=== PATIENT | female | born 1985 | race Hispanic/Latino ===

== ENCOUNTER 2018-09-18 19:40 | Emergency (ER) | payer OTHER ==
[~2018-09-18] VITALS: Ht 162.6 cm; Wt 56.8 kg
[2018-09-18 20:17] LABS: BASO % 0.4 % (0.0-1.0); EOS # 0.1 10^3/uL (0.0-0.50); EOS % 1.1 % (0.0-3.0); HEMATOCRIT 39.5 % (36.0-47.0); HEMOGLOBIN 12.5 g/dl (12.0-15.5); LYMPH # 2.2 10^3/uL (1.5-4.5); LYMPH % 27.6 % (24.0-44.0); MEAN CORPUSCULAR HEMOGLOBIN 26.8 pg (27.0-33.0); MEAN CORPUSCULAR HGB CONC 31.6 g/dl (32.0-36.5); MEAN CORPUSCULAR VOLUME 84.6 fl (80.0-96.0); MONO # 0.7 10^3/uL (0.0-0.8); MONO % 8.8 % (0.0-5.0); NEUTROPHILS % 61.9 % (36.0-66.0); PLATELET COUNT, AUTOMATED 333 10^3/uL (150-450); RED BLOOD COUNT 4.67 10^6/uL (4.00-5.40); WHITE BLOOD COUNT 8.1 10^3/uL (4.0-10.0)
[2018-09-18 20:42] LABS: ALT/SGPT 21 U/L (12-78); BILIRUBIN,DIRECT < 0.1 MG/DL (0.0-0.2); BILIRUBIN,TOTAL 0.4 MG/DL (0.2-1.0); BLOOD UREA NITROGEN 18 MG/DL (7-18); CALCIUM LEVEL 9.4 MG/DL (8.5-10.1); CARBON DIOXIDE LEVEL 31 MEQ/L (21-32); CHLORIDE LEVEL 105 MEQ/L (98-107); CREATININE FOR GFR 0.73 MG/DL (0.55-1.30); GLOMERULAR FILTRATION RATE > 60.0 (>60); GLUCOSE, FASTING 89 MG/DL (70-100); LIPASE 210 U/L (73-393); POTASSIUM SERUM 4.2 MEQ/L (3.5-5.1); SODIUM LEVEL 141 MEQ/L (136-145)
[2018-09-18 21:46] LABS: URINE PREG TEST NEGATIVE (NEGATIVE)
[2018-09-18] MEDS ORDERED: ISOVUE-370 76% 125ML VIAL (Q9967 PER ML) As Ordered ONE (22:57)
[2018-09-18] MEDS ORDERED: FLON1SPR NARES (22:59)
[2018-09-18] MEDS ORDERED: ACETAMINOPHEN 325 MG TAB PO ONE (23:15)
--- NOTE | 2018-09-19 00:25 | REPVR ---
EXAM: CT Abdomen and Pelvis With Contrast EXAM DATE/TIME: 09/18/2018 9:41 PM CLINICAL HISTORY: 33 years old, female; Pain; Abdominal pain; Localized; Right lower quadrant (rlq); Additional info: Rlq pain; R/O appy TECHNIQUE: Imaging protocol: Axial computed tomography images of the abdomen and pelvis with intravenous contrast. Coronal and sagittal reformatted images were created and reviewed. Radiation optimization: All CT scans at this facility use at least one of these dose optimization techniques: automated exposure control; mA and/or kV adjustment per patient size (includes targeted exams where dose is matched to clinical indication); or iterative reconstruction. Contrast material: iso Contrast volume: 100 ml Contrast route: ac COMPARISON: No relevant prior studies available. FINDINGS: Lower thorax: Mild dependent atelectatic change at the lung bases. ABDOMEN: Liver: Subcentimeter low density hepatic lesions, measuring up to 4 mm, too small to characterize. 1.5 x 1.1 cm hypervascular lesion in the right hepatic lobe, likely a flash filling hemangioma. Gallbladder and bile ducts: No radiodense gallstones. No biliary ductal dilatation. Pancreas: Unremarkable. Spleen: Unremarkable. Adrenals: Unremarkable. Kidneys and ureters: No mass. No radiodense calculi. No hydronephrosis. Stomach and bowel: No bowel wall thickening. No obstruction. No pneumatosis. Appendix: Normal. PELVIS: Bladder: Unremarkable. Reproductive: 3.8 x 2.9 cm right adnexal cystic lesion. Fibroid uterus. ABDOMEN and PELVIS: Intraperitoneal space: Trace nonspecific free pelvic fluid, likely physiologic. No organized fluid collection. No free air. Bones/joints: No acute osseous abnormality. Soft tissues: Unremarkable. Vasculature: Unremarkable. No aneurysm. Lymph nodes: No pathologically enlarged lymph nodes. IMPRESSION: 1. No CT evidence of acute appendicitis. 2. 3.8 x 2.9 cm right adnexal cystic lesion and trace nonspecific free pelvic fluid, likely physiologic. If clinically indicated, pelvic ultrasound may be obtained for further evaluation. 3. Additional findings, as above. COMMENT: Consistent with the [employer]'s Incidental Findings Committee Report (J [employer]iol 2010): Unless the patient's specific circumstances suggest otherwise, any liver lesion 0.5 cm or less, any cystic kidney lesion less than 1.0 cm, and/or any adrenal lesion 1.0 cm or less not otherwise characterized in this report as possessing suspicious or indeterminate imaging features is/are highly likely to be benign and do not require follow-up imaging or biopsy. Electronically signed by: Ranjeet Miranda On 09/19/2018 00:24:35 AM
[2018-09-19] MEDS ORDERED: KETO10TAB PO (02:37)
[2018-09-19 03:11] VITALS: BP 115/80
--- NOTE | 2018-09-19 04:17 | REPVR ---
EXAM: US Pelvis Complete, Transabdominal and US Duplex Artery and Vein, Ovaries, Complete EXAM DATE/TIME: 09/19/2018 2:26 AM CLINICAL HISTORY: 33 years old, female; Abnormal findings; Abnormal imaging test; Additional info: Rlq pain/cyst on ct/ R/O torsion TECHNIQUE: Imaging protocol: Real-time transabdominal pelvic ultrasound with image documentation. Real-time duplex ultrasound scan of the arterial and venous flow of the ovaries with B-mode, color Doppler flow and spectral waveform analysis. Complete Pelvis, Complete Duplex. COMPARISON: CT ABD/PEL W/IV CONTRAST ONLY 09/18/2018 10:57 PM FINDINGS: Uterus/cervix: Uterus measures 10.9 x 4.2 x 6.3 cm. There is a mildly heterogeneous, isoechoic mass consistent with a fibroid in the anterior aspect of knee uterine body which measures 3.4 x 3.7 x 4.1 cm. The endometrial stripe measures 1.4 cm in thickness. Right adnexa: The right ovary measures 5.2 x 3.7 x 4.4 cm. There is an anechoic cyst within the right ovary which measures 3.2 x 2.5 x 2.7 cm. Normal arterial and venous blood flow are seen in the right ovary on color and pulsed Doppler. The peak systolic velocity is 17 cm/s. Left adnexa: The left ovary appears unremarkable and measures 3.1 x 3.6 x 2.4 cm.Normal arterial and venous blood flow are seen in the left ovary on color and pulsed Doppler. The peak systolic velocity is 12 cm/s. Free fluid: No significant fluid is seen in the cul-de-sac. Bladder: The bladder appears normal and measures 9.2 x 9.5 x 10.7 cm. IMPRESSION: 1. Simple cyst within the right ovary measuring up to 3.2 cm, corresponding to the findings on CT scan. 2. Normal blood flow within both ovaries. No evidence of ovarian torsion. 3. Anterior uterine body fibroid. Electronically signed by: Araceli Engel On 09/19/2018 04:17:24 AM
== END 2018-09-19 03:11 | disposition home or self-care (01) ==
LOC: M ED 19:40
DX: N83.201 Unspecified ovarian cyst, right side (principal); D25.9 Leiomyoma of uterus, unspecified; N80.9 Endometriosis, unspecified; R11.0 Nausea
CPT/HCPCS: 74177; 76856; 80048; 80076; 81001; 83690; 84703; 85025; 93976; 99284; Q9967

== ENCOUNTER → 2018-09-18 | Outpatient (REF) | payer OTHER ==
[~2018-09-18] MED LIST: FLON1SPR NARES; KETO10TAB PO
[2018-09-19 14:43] LABS: CHLAMYDIA DNA AMPLIFICATION NEGATIVE (NEGATIVE); GC DNA AMPLIFICATION NEGATIVE (NEGATIVE)
== END ==
LOC: M LAB REF 11:29
PROVIDERS: ATTEND Physician Assistant
DX: R10.31 Right lower quadrant pain (principal)

== ENCOUNTER → 2018-09-25 | Outpatient (CLI) | payer OTHER ==
[2018-09-25 12:48] LABS: BASO % 0.3 % (0.0-1.0); EOS % 1.1 % (0.0-3.0); HEMATOCRIT 43.2 % (36.0-47.0); HEMOGLOBIN 13.5 g/dl (12.0-15.5); LYMPH % 26.3 % (24.0-44.0); MEAN CORPUSCULAR HEMOGLOBIN 26.7 pg (27.0-33.0); MEAN CORPUSCULAR HGB CONC 31.3 g/dl (32.0-36.5); MEAN CORPUSCULAR VOLUME 85.4 fl (80.0-96.0); MONO # 0.3 10^3/uL (0.0-0.8); MONO % 9.1 % (0.0-5.0); NEUTROPHILS # 2.3 10^3/uL (1.8-7.7); NEUTROPHILS % 62.9 % (36.0-66.0); PLATELET COUNT, AUTOMATED 240 10^3/uL (150-450); RED BLOOD COUNT 5.06 10^6/uL (4.00-5.40); WHITE BLOOD COUNT 3.7 10^3/uL (4.0-10.0)
[2018-09-25 13:25] LABS: ALBUMIN 4.2 GM/DL (3.2-5.2); ALT/SGPT 21 U/L (12-78); BILIRUBIN,TOTAL 0.4 MG/DL (0.2-1.0); BLOOD UREA NITROGEN 15 MG/DL (7-18); C REACTIVE PROTEIN QUANTITATIV < 0.30 MG/DL (0.00-0.30); CALCIUM LEVEL 8.9 MG/DL (8.5-10.1); CARBON DIOXIDE LEVEL 25 MEQ/L (21-32); CHLORIDE LEVEL 106 MEQ/L (98-107); CREATININE FOR GFR 0.81 MG/DL (0.55-1.30); GLOMERULAR FILTRATION RATE > 60.0 (>60); GLUCOSE, FASTING 85 MG/DL (70-100); POTASSIUM SERUM 4.4 MEQ/L (3.5-5.1); SODIUM LEVEL 140 MEQ/L (136-145); TOTAL PROTEIN 7.5 GM/DL (6.4-8.2)
[2018-09-25 13:52] LABS: ERYTHROCYTE SEDIMENTATION RATE 7 mm/hr (0-20)
== END ==
LOC: M WUC 09:14
PROVIDERS: ATTEND Physician Assistant
DX: J09.X2 Influenza due to identified novel influenza A virus with other respiratory manifestations (principal)